=== PATIENT | female | born 1935 | race Caucasian/White ===

== ENCOUNTER 2017-06-28 08:32 | Day surgery (SDC) | payer MEDICARE, SELFPAY ==
[2017-06-28 08:45] VITALS: BP 157/86; PULSE 79; RESP 20; TEMP 36.4; O2SAT 93
[2017-06-28 08:46] VITALS: BMI 54.1
[2017-06-28 09:00] VITALS: BP 137/62; PULSE 81; RESP 20; O2SAT 93
[2017-06-28 09:15] VITALS: BP 124/82; PULSE 88; RESP 20
[2017-06-28 10:12] VITALS: BP 132/84; PULSE 88; RESP 20; TEMP 36.4; O2SAT 98
--- NOTE | 2017-07-01 08:51 | HMH.LOOP ---
[facility] Loop Recorder Date: 06/28/17 Time: 09:00 Procedure Performed:: Placement of implantable loop recorder Indication:: History of syncope Technique:: After informed consent obtained, 1 percent lidocaine with epinephrine was used to anesthetize the LEFT anterior aspect of the chest along the LEFT sternal border. Using the preformed scalpel, an incision was made and the loop recorder was placed subcutaneously without difficulty. Following the deployment of the loop recorder interrogation of the device was performed to ensure appropriate voltage was being detected. Once this was verified (0.48 mV). Steri-Strips were placed over the incision and the patient was prepped to discharge home. Patient tolerated procedure well with minimal discomfort. Impression:: Successful implantation of loop recorder. Serial Number:: [id number] Plan:: Routine postop care. Wound check in the office in 1 week.
--- NOTE | 2017-07-01 08:54 | P.PCN_ITS ---
[facility] Loop Recorder Date: 06/28/17 Time: 09:00 Procedure Performed:: Placement of implantable loop recorder Indication:: History of syncope Technique:: After informed consent obtained, 1 percent lidocaine with epinephrine was used to anesthetize the LEFT anterior aspect of the chest along the LEFT sternal border. Using the preformed scalpel, an incision was made and the loop recorder was placed subcutaneously without difficulty. Following the deployment of the loop recorder interrogation of the device was performed to ensure appropriate voltage was being detected. Once this was verified (0.48 mV). Steri-Strips were placed over the incision and the patient was prepped to discharge home. Patient tolerated procedure well with minimal discomfort. Impression:: Successful implantation of loop recorder. Serial Number:: [id number] Plan:: Routine postop care. Wound check in the office in 1 week.
== END 2017-06-28 10:56 | disposition home or self-care (01) ==
PROVIDERS: PCP Family Medicine; Visit Provider Internal Medicine
DX: I44.0 Atrioventricular block, first degree (principal); I25.10 Atherosclerotic heart disease of native coronary artery without angina pectoris; Z72.0 Tobacco use; I73.9 Peripheral vascular disease, unspecified; I11.9 Hypertensive heart disease without heart failure; R26.9 Unspecified abnormalities of gait and mobility
CPT/HCPCS: 33282; C1764